=== PATIENT | male | born 1990 | race Caucasian/White ===

== ENCOUNTER → 2017-07-12 14:43 | Outpatient (CLI) | payer OTHER, SELFPAY ==
[2017-07-14 14:07] LABS: Endomysial Antibody IgA Negative (Negative)
[2017-07-15 11:19] LABS: Immunoglobulin A 179 mg/dL (90-386); t-Transglutaminase IgA 2 U/mL (0-3)
== END ==
PROVIDERS: Visit Provider Internal Medicine Gastroenterology
DX: R19.7 Diarrhea, unspecified (principal); R10.9 Unspecified abdominal pain; R63.4 Abnormal weight loss
CPT/HCPCS: 36415; 82784; 83516; 86140; 86255

== ENCOUNTER → 2017-07-19 08:55 | Outpatient (CLI) | payer OTHER, SELFPAY ==
--- NOTE | 2017-07-19 08:58 | RAD_ITS ---
STUDY: AIR-CONTRAST UPPER GI SERIES AND SMALL BOWEL FOLLOW-THROUGH EXAMINATION. REASON FOR EXAM: Male, 27 years old. Abdominal pain and diarrhea. Weight loss. FLUOROSCOPY TIME (if supplied): (1:52) minutes/seconds TECHNIQUE: The patient ingested barium. Multiple images of the esophagus stomach and duodenum were obtained. Following this, a small bowel follow-through examination was performed. COMPARISON: None. FINDINGS: The esophagus is unremarkable. There is no evidence of obstruction. No gastroesophageal reflux is seen. The stomach and duodenum are unremarkable. Small bowel follow-through examination was then performed. There is evidence of narrowing of the terminal ileum as well as deformity of the cecum with separation of bowel loops and linear contrast collection suggestive of fistulous tracts. This is in keeping with Crohn's disease. There is no evidence of a antegrade obstruction. RAD/Upper GI/w Small Bowel IMPRESSION: Findings in keeping with Crohn's disease of the terminal ileum and the colon as described. Electronically Signed: Parish Partida MD at 12:49 EST Tel [phone], Service support ,
== END ==
PROVIDERS: Visit Provider Internal Medicine Gastroenterology
DX: R10.9 Unspecified abdominal pain (principal); R63.4 Abnormal weight loss
CPT/HCPCS: 74249

== ENCOUNTER → 2017-09-01 14:31 | Outpatient (CLI) | payer OTHER, SELFPAY ==
[2017-09-04 08:10] LABS: HEPATITIS B SURFACE AG Confirm. indicated (Negative); QNTFERON TB Ag Minus Nil Value < 0 IU/mL (.); QNTFERON TB Ag Value 0.04 IU/mL (.); QNTFERON TB Mitogen Value > 10.00 IU/mL (.); QNTFERON TB Nil Value 0.06 IU/mL (.)
[2017-09-04 09:28] LABS: HBsAg Confirmation Negative (.); QNTIFERON TB Gold Negative (Negative)
== END ==
PROVIDERS: Visit Provider Internal Medicine Gastroenterology
DX: K50.90 Crohn's disease, unspecified, without complications (principal)
CPT/HCPCS: 36415; 86480; 87340

== ENCOUNTER → 2017-09-29 09:24 | Outpatient (CLI) | payer OTHER, SELFPAY | PROVIDERS: Visit Provider Internal Medicine Gastroenterology | DX: K50.90 Crohn's disease, unspecified, without complications (principal) | CPT/HCPCS: 96365; J7050; A4216; J3358 ==

== ENCOUNTER 2019-07-18 21:48 | Emergency (ER) | payer OTHER, SELFPAY ==
[2019-07-18 21:49] VITALS: BP 147/102; PULSE 121; RESP 18; TEMP 37.5; O2SAT 96; BMI 29.9
--- NOTE | 2019-07-19 00:05 | RAD_ITS ---
STUDY: X-RAY CHEST REASON FOR EXAM: Male, 29 years old. Cough x 3 weeks TECHNIQUE: PA and lateral views of the chest. COMPARISON: None. FINDINGS: There is mild bronchial prominence with peribronchial cuffing in the lung bases without focal consolidation. There is no demonstrated pleural abnormality. Normal size heart. Normal mediastinum and keven. Normal visualized pulmonary arteries. Normal visualized aortic arch and descending thoracic aorta. Normal visualized thoracic spine. Normal visualized ribs, clavicles, and shoulders. There is no demonstrated abnormality of the visualized soft tissue structures of the upper abdomen. RAD/Chest PA and Lateral IMPRESSION: Bronchial inflammation. No pulmonary edema, congestive heart failure or confluent pneumonia. Electronically Signed: Andria Rivera MD at 1:29 EST , Service support ,
[2019-07-19 00:33] VITALS: BP 132/90; PULSE 114; RESP 16; O2SAT 94
--- NOTE | 2019-07-19 00:33 | ED.DCSUM_ITS ---
History of Present Illness Chief Complaint: Lower Extremity Injury Informant: Patient Onset: Today Context: Gradual Onset Timing: Continuous Narrative: Patient is a 29-year-old female presenting with a worsening rash on his lower extremities. Patient states he noticed it this evening and it seems to be spreading from his feet up and down to his lower abdomen. He states that he was started on amoxicillin on Wednesday for 3 weeks of upper respiratory symptoms, sinus congestion and postnasal drip. He has been on amoxicillin before and never had any issues. He has no known drug allergies. He went back to the urgent care and was sent to the emergency room for blood work because of concern for an atypical rash. Patient does have a history of Crohn's disease but states that he has had his normal bowel movements. They have been soft and he said 2-3 a day. Denies any black or blood in them. He notes the past few days he has had some pain in his legs bilaterally especially in his calfs and knees. He Denies Any Fever, Ear Pain, Nausea, Vomiting or Abdominal Pain. Patient Is on Stelara Every 8 Weeks. His Last Dose Was on June 09. Past Medical History - Allergies and Home Meds Allergies/Adverse Reactions: Allergies No Known Allergies Allergy (Verified 09/29/17 09:32) Primary Care Physician: Lourdes Galarza DO [Primary Care Provider] - Past Medical History: - - Crohn's disease Surgical History: noncontributory Smoking Status: Never smoker Review of Systems General: Denies: Chills, Fever, Sweats Eyes: Denies: Visual changes - bilaterally, Diplopia ENT: Reports: Sore throat, - - Sinus congestion, postnasal drip. Denies: Rhinorrhea Cardiovascular: Denies: Chest pain, Palpitations Respiratory: Reports: Cough - Worse at night or with lying down. Denies: Dyspnea, Sputum, Dyspnea on exertion Gastrointestinal: Denies: Abdominal pain, Nausea, Vomiting, Diarrhea, Melena, Hematochezia Genitourinary: Denies: Dysuria, Hematuria, Frequency Musculoskeletal: Denies: Neck pain, Back pain, Extremity Pain Skin: Reports: Rash - Lower extremities. Denies: Wounds Neurological: Reports: Headache - Mild sinus pressure forehead. Denies: Weakness, Numbness Physical Exam Vital Signs/Narrative: Vital Signs Temp Pulse Resp BP Pulse Ox 07/18/19 21:49 99.5 F H 121 H 18 147/102 H 96 Inital Vital Signs reviewed: Yes General: Well nourished, Well developed, No Acute Distress Head: Normocephalic, Atraumatic Eyes: Perrl, EOMI ENT: Moist mucous membranes, No rhinorrhea Neck: Supple, Nontender Cardiovascular: Regular rate, Regular rhythm, No murmurs Respiratory: No distress, CTA bilaterally, Chest nontender Abdomen: Soft, Nontender, Nondistended, Normal bowel sounds Back: Nontender, Normal Inspection Extremities: Nontender, No edema Skin: Normal color, Rash - diffuse petechial rash of his lower extremities with sparing of the soles of his feet it extends up to his lower abdomen. Does not seem to involve the buttocks or upper torso/arms or head., - - No purpura, negative Nikolsky sign, no mucosal involvement Neurological: Alert, Oriented x3, Cranial nerves II-XII grossly intact, Normal Strength, Normal Sensation Psychological: Normal affect, Normal Mood Diagnostic/Tx/Re-eval Clinical Impression(s) from Imaging Studies Chest X-Ray 07/19/19 00:05 IMPRESSION: Bronchial inflammation. No pulmonary edema, congestive heart failure or confluent pneumonia. Electronically Signed: Andria Rivera MD at 1:29 EST , Service support , Laboratory Data 07/19/19 07/19/19 07/19/19 00:25 00:25 00:25 WBC 10.4 RBC 5.16 Hgb 13.2 Hct 42.1 MCV 81.6 MCH 25.6 L MCHC 31.4 L RDW Std Deviation 44.0 H RDW Coeff of Matilde 14.8 H Plt Count 329 MPV 9.7 Immature Gran % (Auto) 1.300 H Neut % (Auto) 77.8 H Lymph % (Auto) 9.7 L [place] % (Auto) 9.7 Eos % (Auto) 0.5 Baso % (Auto) 1.0 Absolute Neuts (auto) 8.1 H Absolute Lymphs (auto) 1.01 Nucleated RBC % 0 PT 13.1 INR 1.0 APTT 29.5 Sodium 139 Potassium 3.8 Chloride 105 Carbon Dioxide 27.0 Anion Gap 7 BUN 14 Creatinine 1.08 Estim Creat Clear Calc 107.49 Est GFR (MDRD) Af Amer 104 Est GFR (MDRD) Non-Af 86 BUN/Creatinine Ratio 13.0 Glucose 102 Lactic Acid Calcium 9.0 Total Bilirubin 0.30 AST 15 ALT 31 Alkaline Phosphatase 70 Total Creatine Kinase Total Protein 7.6 Albumin 3.4 Globulin 4.2 Albumin/Globulin Ratio 0.8 L Urine Color Urine Clarity Urine pH Ur Specific [place] Urine Protein Urine Glucose (UA) Urine Ketones Urine Occult Blood Urine Nitrite Urine Bilirubin Urine Urobilinogen Ur Leukocyte Esterase Urine RBC Urine WBC Ur Squamous Epith Cells Urine Bacteria Urine Mucus 07/19/19 07/19/19 07/19/19 00:25 00:38 00:38 WBC RBC Hgb Hct MCV MCH MCHC RDW Std Deviation RDW Coeff of Matilde Plt Count MPV Immature Gran % (Auto) Neut % (Auto) Lymph % (Auto) [place] % (Auto) Eos % (Auto) Baso % (Auto) Absolute Neuts (auto) Absolute Lymphs (auto) Nucleated RBC % PT INR APTT Sodium Potassium Chloride Carbon Dioxide Anion Gap BUN Creatinine Estim Creat Clear Calc Est GFR (MDRD) Af Amer Est GFR (MDRD) Non-Af BUN/Creatinine Ratio Glucose Lactic Acid 1.0 Calcium Total Bilirubin AST ALT Alkaline Phosphatase Total Creatine Kinase 165 Total Protein Albumin Globulin Albumin/Globulin Ratio Urine Color Yellow Urine Clarity Clear Urine pH 6.0 Ur Specific [place] 1.010 Urine Protein Negative Urine Glucose (UA) Normal Urine Ketones Negative Urine Occult Blood Negative Urine Nitrite Negative Urine Bilirubin Negative Urine Urobilinogen 1 H Ur Leukocyte Esterase Negative Urine RBC 0-5 SEEN Urine WBC 0-5 SEEN Ur Squamous Epith Cells 0 SEEN Urine Bacteria 0 SEEN Urine Mucus 0 SEEN - Medical Decision Making Patient is evaluated for rash of his lower extremities. The rash is petechial. Patient's platelet count is normal. His CBC and BMP are normal. He is not have any proteinuria or hematuria. He does not have any involvement of mucosal membranes. I do not suspect Berkowitz-Isael syndrome, TTP or ITP. Patient was recently placed on antibiotics for sinusitis. Is possible that this could be an unusual allergic reaction. Vasculitis is also in the differential. As patient is well-appearing and does not have any systemic symptoms I do not think he requires admission. He will be started on steroids in case this is a vasculitis. He is counseled that he should stop taking antibiotics in case this is an unusual allergic reaction. He is not have any airway compromise or signs of anaphylaxis. He does not have any fever or meningeal signs. He is instructed to follow-up shortly with his PCP. He states he took tomorrow off of work so we can follow-up. Patient is counseled on signs and symptoms requiring return to the emergency room. Patient verbalizes agreement and understand this plan. Patient discharged home in stable and improved condition. ED Disposition - Plan for ED Patient: Disposition: Home or Assisted Living Diagnosis: Petechial rash Instructions: ALLERGIC REACTION, Other (General), PETECHIAE (Child) Prescriptions: Prednisone 60 mg PO DAILY #21 tab Prescription Printed Referrals: Lourdes Galarza DO [Primary Care Provider] - Additional Instructions: The rash you have is consistent with petechiae. It is concerning for a possible vasculitis. You were placed on steroids to hopefully treat this. It is possible that this could be unique allergic reaction. Please stop taking the antibiotics that you were prescribed on Wednesday because of this. These follow-up with your primary care doctor either tomorrow or Wednesday. You might need further blood testing and evaluation of this rash. At this time I do think you are safe to go home. Your blood work was all normal today. You may take Tylenol or ibuprofen as needed for the leg pain.
[2019-07-19 00:36] LABS: Absolute Lymphocyte Count 1.01 X10^3/uL (0.83-4.51); Absolute Neutrophil Count 8.1 X10^3/uL (2.0-7.7); Eosinophil# 0.05 X10^3/uL; Eosinophils% 0.5 % (0-5); Hematocrit 42.1 % (40-54); Hemoglobin 13.2 g/dL (13.0-16.5); Lymphocyte # 1.01 X10^3/ul (4.0); Lymphocyte % 9.7 % (19-41); Mean Corp Hgb Conc 31.4 g/dL (32-36); Mean Corpuscular Hgb 25.6 pg (27.0-32.0); Mean Corpuscular Volume 81.6 fL (80-94); Mean Platelet Vol. 9.7 fl (6.2-12.0); Monocyte# 1.01 X10^3/uL; Monocyte% 9.7 % (0-10); NRBC Flagged by Analyzer 0 % (0-5); Neutrophil # 8.08 X10^3/uL (2.7-7.7); Neutrophil % 77.8 % (47-70); Platelet Count 329 K/mm3 (150-450); RBC Distribution Width CV 14.8 % (11.6-14.6); Red Blood Count 5.16 M/mm3 (4.6-6.2); White Blood Count 10.4 K/mm3 (4.4-11.0)
[2019-07-19 00:44] LABS: Prothrombin Time (Protime)PT. 13.1 SECONDS (11.7-14.9)
[2019-07-19 00:44] LABS: Bacteria 0 SEEN /hpf (None Seen); Mucous, Urine 0 SEEN /hpf (<or=2+); Squamous Epithelial Cells - UA 0 SEEN /hpf (0-5)
[2019-07-19 00:45] LABS: Partial Thromboplast Time 29.5 Seconds (24.1-36.2)
[2019-07-19 00:50] LABS: Color, Urine Yellow (Yellow); Glucose, Dipstick Normal (Normal); Ketone-Dipstick Negative (Negative); Leukocyte Esterase-Dipstick Negative /ul (Negative); Nitrite-Dipstick Negative (Negative); Occult Blood-Urine Negative /ul (Negative); Protein-Dipstick Negative (Negative); Urine Bilirubin Dipstick Negative (Negative); Urine Clarity Clear (Clear); Urine Urobilinogen 1 mg/dl (Normal)
[2019-07-19 01:01] LABS: Red Blood Cells-Urine 0-5 SEEN /hpf (0-5); White Blood Cells 0-5 SEEN /hpf (0-5)
[2019-07-19 01:02] LABS: ALB/GLOB Ratio 0.8 RATIO (0.9-2.4); AST(SGOT) 15 U/L (15-37); Alanine Aminotransfer ALT/SGPT 31 U/L (16-61); Albumin, Serum 3.4 g/dL (3.2-5.0); Alkaline Phosphatase 70 U/L (45-117); Anion Gap 7 (5-15); BUN 14 mg/dL (7-18); Chloride 105 mmol/L (98-107); Creatinine, Serum 1.08 mg/dL (0.70-1.30); EST Glomerular Filtration Rate 86 mL/min (>60); Est Glom Filt Rate - Afr Amer 104 mL/min (>60); Estimated Creatinine Clearance 107.49 ml/min; Globulin 4.2 g/dL (2.2-4.2); Glucose 102 mg/dL (74-106); Potassium 3.8 mmol/L (3.5-5.1); Protein, Total 7.6 g/dL (6.4-8.2); Sodium Level 139 mmol/L (136-145)
[2019-07-19 01:15] LABS: CPK Total, Creatine Kinase 165 U/L (39-308)
[2019-07-19] MEDS: 0.9% Normal Saline 1,000 ML 999 ML IV (01:56)
[2019-07-19] MEDS: Ketorolac 15 MG/ML Vial IV (01:56)
[2019-07-19] MEDS: predniSONE 20 MG Tablet 60 MG PO (03:14)
[2019-07-19 03:15] VITALS: BP 127/78; PULSE 90; RESP 16; O2SAT 98
[2019-07-19 03:19] VITALS: BP 127/78; PULSE 90; RESP 16; O2SAT 96
== END 2019-07-19 03:19 | disposition home or self-care (01) ==
PROVIDERS: Emergency Provider Emergency Medicine
DX: R23.3 Spontaneous ecchymoses (principal)
CPT/HCPCS: 71046; 80053; 81001; 82550; 83605; 85025; 85610; 85730; 96361; 96374; 99285; J7030; A4216

== ENCOUNTER → 2021-01-15 13:47 | Outpatient (CLI) | payer OTHER, SELFPAY ==
[2021-01-15 15:02] LABS: Hemoglobin 13.7 g/dL (13.0-16.5); Mean Corp Hgb Conc 32.6 g/dL (32-36); Mean Corpuscular Volume 82.7 fL (80-94); Mean Platelet Vol. 10.3 fl (6.2-12.0); Platelet Count 271 K/mm3 (150-450); RBC Distribution Width CV 14.2 % (11.6-14.6); RBC Distribution Width SD 42.2 fl (35.1-43.9); Red Blood Count 5.08 M/mm3 (4.6-6.2); White Blood Count 5.5 K/mm3 (4.4-11.0)
[2021-01-15 15:17] LABS: Erythrocyte Sedimentation Rate 4 mm/hr (0-20)
[2021-01-15 15:18] LABS: AST(SGOT) 16 U/L (15-37); Alanine Aminotransfer ALT/SGPT 37 U/L (16-61); Albumin, Serum 3.7 g/dL (3.2-5.0); Alkaline Phosphatase 70 U/L (45-117); Anion Gap 5 (5-15); BUN 12 mg/dL (7-18); BUN/Creat Ratio 11.3 RATIO (10-20); CRP 7.18 mg/L (0.0-3.0); Calcium,Total 8.6 mg/dL (8.5-10.1); Chloride 106 mmol/L (98-107); Creatinine, Serum 1.06 mg/dL (0.70-1.30); EST Glomerular Filtration Rate 87 mL/min (>60); Est Glom Filt Rate - Afr Amer 105 mL/min (>60); Globulin 3.6 g/dL (2.2-4.2); Glucose 88 mg/dL (74-106); Potassium 3.7 mmol/L (3.5-5.1); Protein, Total 7.3 g/dL (6.4-8.2); Sodium Level 140 mmol/L (136-145)
== END ==
PROVIDERS: Referring Provider Internal Medicine Gastroenterology; Visit Provider Internal Medicine Gastroenterology
DX: K50.90 Crohn's disease, unspecified, without complications (principal)
CPT/HCPCS: 36415; 80053; 85027; 85652; 86140

== ENCOUNTER → 2021-11-19 | Outpatient (CLI) | payer OTHER, SELFPAY ==
--- NOTE | 2021-11-19 07:30 | MRI_ITS ---
EXAM: MR PELVIS WITHOUT AND WITH INTRAVENOUS CONTRAST CLINICAL INDICATION: ANAL FISTULA TECHNIQUE: Multiplanar and multisequence MR images of the pelvis without and with intravenous contrast. This report was created using [employer] report generation technology. CONTRAST: IV 19 ml Dotarem COMPARISON: None. FINDINGS: BOWEL: Fecal residue in the rectal vault. No rectal wall thickening. No perirectal stranding or focal fluid. Anal canal is unremarkable without evidence of abnormal contrast enhancement, perianal fissure or focal fluid collection. APPENDIX: No evidence of acute appendicitis. INTRAPERITONEAL SPACE: Unremarkable. No ascites or other fluid collection. BLADDER: Urinary bladder is not well-distended. REPRODUCTIVE: Unremarkable as visualized. No mass. BONES/JOINTS: Unremarkable. No suspicious lytic or blastic abnormality. SOFT TISSUES: Unremarkable. No pelvic wall hernia. LYMPH NODES: Unremarkable. No enlarged lymph nodes. MRI/Pelvis (Routine) IMPRESSION: Unremarkable pelvis MRI without demonstrated perianal fissure or focal fluid collection. Electronically Signed: Jeffrey Vásquez MD ([place]) at 10:00 EDT Reading Location ID and State: / [place] , Service support ,
== END | disposition home or self-care (01) ==
PROVIDERS: Referring Provider Internal Medicine Gastroenterology; Visit Provider Internal Medicine Gastroenterology
DX: K50.913 Crohn's disease, unspecified, with fistula (principal)
CPT/HCPCS: 72195; A9575

== ENCOUNTER → 2021-11-24 | Outpatient (CLI) | payer OTHER, SELFPAY | END | disposition home or self-care (01) | LOC: MTLAB 09:40 | PROVIDERS: Referring Provider Internal Medicine Gastroenterology; Visit Provider Internal Medicine Gastroenterology | DX: K50.913 Crohn's disease, unspecified, with fistula (principal) | CPT/HCPCS: 36415 ==

== ENCOUNTER → 2023-04-14 | Outpatient (CLI) | payer OTHER, SELFPAY ==
[2023-04-14 12:39] LABS: Erythrocyte Sedimentation Rate 9 mm/hr (0-20)
[2023-04-14 12:41] LABS: Hematocrit 45.8 % (40-54); Hemoglobin 14.7 g/dL (13.0-16.5); Mean Corp Hgb Conc 32.1 g/dL (32-36); Mean Corpuscular Hgb 27.2 pg (27.0-32.0); Mean Corpuscular Volume 84.8 fL (80-94); Platelet Count 266 K/mm3 (150-450); RBC Distribution Width CV 13.7 % (11.6-14.6); White Blood Count 4.5 K/mm3 (4.4-11.0)
[2023-04-14 12:49] LABS: AST(SGOT) 18 U/L (15-37); Alanine Aminotransfer ALT/SGPT 26 U/L (16-61); Albumin, Serum 3.7 g/dL (3.2-5.0); Alkaline Phosphatase 59 U/L (45-117); Anion Gap 9 (5-15); BUN 10 mg/dL (7-18); BUN/Creat Ratio 9.4 RATIO (10-20); CRP 4.64 mg/L (0.0-3.0); Calcium,Total 8.6 mg/dL (8.5-10.1); Chloride 106 mmol/L (98-107); Creatinine, Serum 1.06 mg/dL (0.70-1.30); EST Glomerular Filtration Rate 85 mL/min (>60); Est Glom Filt Rate - Afr Amer 103 mL/min (>60); Globulin 3.7 g/dL (2.2-4.2); Glucose 93 mg/dL (74-106); Potassium 3.9 mmol/L (3.5-5.1); Protein, Total 7.4 g/dL (6.4-8.2); Sodium Level 141 mmol/L (136-145)
== END | disposition home or self-care (01) ==
PROVIDERS: Referring Provider Internal Medicine Gastroenterology; Visit Provider Internal Medicine Gastroenterology
DX: K50.90 Crohn's disease, unspecified, without complications (principal)
CPT/HCPCS: 36415; 80053; 85027; 85652; 86140

== ENCOUNTER → 2024-02-07 | Outpatient (CLI) | payer OTHER, SELFPAY ==
[2024-02-07 17:57] LABS: Hematocrit 43.9 % (40-54); Hemoglobin 14.2 g/dL (13.0-16.5); Mean Corp Hgb Conc 32.3 g/dL (32-36); Mean Corpuscular Hgb 27.7 pg (27.0-32.0); Mean Corpuscular Volume 85.7 fL (80-94); Mean Platelet Vol. 10.6 fl (6.2-12.0); Platelet Count 274 K/mm3 (150-450); RBC Distribution Width CV 13.2 % (11.6-14.6); Red Blood Count 5.12 M/mm3 (4.6-6.2); White Blood Count 4.1 K/mm3 (4.4-11.0)
[2024-02-07 18:16] LABS: Erythrocyte Sedimentation Rate 9 mm/hr (0-20)
[2024-02-07 18:33] LABS: AST(SGOT) 15 U/L (15-37); Alanine Aminotransfer ALT/SGPT 35 U/L (16-61); Albumin, Serum 3.6 g/dL (3.2-5.0); Alkaline Phosphatase 73 U/L (45-117); Anion Gap 7 (5-15); BUN 10 mg/dL (7-18); BUN/Creat Ratio 10.1 RATIO (10-20); CRP 6.86 mg/L (0.0-3.0); Calcium,Total 9.1 mg/dL (8.5-10.1); Chloride 106 mmol/L (98-107); Creatinine, Serum 0.99 mg/dL (0.70-1.30); EST Glomerular Filtration Rate 92 mL/min (>60); Est Glom Filt Rate - Afr Amer 112 mL/min (>60); Globulin 3.5 g/dL (2.2-4.2); Glucose 121 mg/dL (74-106); Potassium 3.6 mmol/L (3.5-5.1); Protein, Total 7.1 g/dL (6.4-8.2); Sodium Level 138 mmol/L (136-145)
== END | disposition home or self-care (01) ==
PROVIDERS: Referring Provider Internal Medicine Gastroenterology; Visit Provider Internal Medicine Gastroenterology
DX: K50.90 Crohn's disease, unspecified, without complications (principal)
CPT/HCPCS: 36415; 80053; 85027; 85652; 86140

== ENCOUNTER → 2025-01-01 | Outpatient (CLI) | payer OTHER, SELFPAY ==
[2025-01-01 17:42] LABS: Hematocrit 45.2 % (40-54); Hemoglobin 15.0 g/dL (13.0-16.5); Mean Corp Hgb Conc 33.2 g/dL (32-36); Mean Corpuscular Volume 85.0 fL (80-94); Mean Platelet Vol. 10.4 fl (6.2-12.0); Platelet Count 261 K/mm3 (150-450); RBC Distribution Width CV 13.6 % (11.6-14.6); RBC Distribution Width SD 41.8 fl (35.1-43.9); Red Blood Count 5.32 M/mm3 (4.6-6.2); White Blood Count 4.8 K/mm3 (4.4-11.0)
[2025-01-01 18:07] LABS: AST(SGOT) 20 U/L (<=37); Alanine Aminotransfer ALT/SGPT 27 U/L (<=46); Albumin, Serum 4.2 g/dL (3.5-5.0); Alkaline Phosphatase 70 U/L (40-129); Anion Gap 14 (5-15); BUN 11 mg/dL (4-19); BUN/Creat Ratio 12.0 RATIO (10-20); CRP 5.18 mg/L (0.0-3.0); Calcium,Total 9.2 mg/dL (7.6-11.0); Carbon Dioxide 21.8 mmol/L (21.0-32.0); Chloride 104 mmol/L (98-108); Globulin 2.9 g/dL (2.2-4.2); Glucose 104 mg/dL (70-99); Potassium 3.5 mmol/L (3.3-5.1)
== END | disposition home or self-care (01) ==
LOC: MTLAB 14:34
PROVIDERS: Referring Provider Internal Medicine Gastroenterology; Visit Provider Internal Medicine Gastroenterology
DX: K50.90 Crohn's disease, unspecified, without complications (principal)
CPT/HCPCS: 36415; 80053; 85027; 85652; 86140